=== PATIENT | female | born 1970 | race Caucasian/White ===

== ENCOUNTER → 2024-07-12 | Outpatient (CLI) | payer OTHER ==
[~2024-07-12] MED LIST: IOHEXOL 350 MG/ML 100ML INFUS..BTL IV ONE; IOHEXOL-350 50ML VIAL IV ONE
--- NOTE | 2024-07-12 12:37 | HMCIMG ---
CT ANGIO ABD AORTA W RUNOFF HISTORY: Peripheral vascular disease COMPARISON: None TECHNIQUE: CT angiography of the abdomen and pelvis was obtained using angiographic technique with maximum intensity projection reconstruction images. Patient was given 150 cc of Omnipaque through intravenous route. Oral contrast was not given. FINDINGS: No pleural effusion is seen bilaterally. There is no evidence of parenchymal disease or pulmonary nodule of the visualized lower lungs. Degenerative changes of the thoracolumbar spine are present. The heart is not enlarged. The liver, spleen, adrenal glands and pancreas are unremarkable. There is no evidence of hydronephrosis bilaterally. No evidence of renal stone is seen. Fecal material is seen in the colon. There are normal size retroperitoneal and mesenteric lymph nodes. No ascites is seen. Atherosclerotic changes are present. There is diffuse atherosclerotic disease. No evidence of abdominal aortic aneurysm is seen. The celiac, superior mesenteric and bilateral renal arteries are grossly patent. The visualized portion of the iliac and femoral arterial systems are also grossly patent. Popliteal arteries and posterior tibial arteries are grossly patent. The mid and distal portion of the anterior tibial and femoral arteries are poorly visualized. Distended limiting evaluation. This may be related to artifact versus slow flow. Possibility of occlusion or stenosis cannot be excluded. . Pelvic sidewalls are symmetric bilaterally. Bladder is well distended without wall thickening. IMPRESSION: 1. The mid and distal portion of the anterior tibial and femoral arteries are poorly visualized. Distended limiting evaluation. This may be related to artifact versus slow flow. Possibility of occlusion or stenosis cannot be excluded. Otherwise grossly unremarkable study CT was performed with one or more following dose reduction techniques: automated exposure control, adjustment of the mA and kv according to patient's size, or use of a iterative reconstruction technique.
== END | disposition home or self-care (01) ==
LOC: RAH 08:54
PROVIDERS: ATTEND Internal Medicine
DX: I73.9 Peripheral vascular disease, unspecified (principal); I70.8 Atherosclerosis of other arteries; M47.815 Spondylosis without myelopathy or radiculopathy, thoracolumbar region
CPT/HCPCS: 75635; Q9967 ×2

== ENCOUNTER → 2025-06-11 | Outpatient (CLI) | payer OTHER ==
[~2025-06-11] MED LIST changes: -IOHEXOL 350 MG/ML 100ML INFUS..BTL IV ONE; -IOHEXOL-350 50ML VIAL IV ONE; +IOHEXOL-350 75 ML VIAL IV ONE
--- NOTE | 2025-06-11 23:41 | HMCIMG ---
STUDY CTA Neck with and without Intravenous Contrast CLINICAL HISTORY Occlusion and stenosis of bilateral carotid arteries TECHNIQUE Axial CT angiography of the neck performed with and without intravenous contrast in the arterial phase. Coronal and sagittal reformatted images and 3D reconstructions were reviewed. NASCET criteria were used for stenosis assessment. CONTRAST Contrast injected without incident COMPARISON None provided FINDINGS COMMON CAROTID ARTERIES There is calcific atherosclerosis at the distal left common carotid artery, with luminal narrowing estimated at less than 10 percent by NASCET criteria. The left common carotid artery demonstrates a relatively reduced caliber compared with the contralateral side but remains patent without dissection or occlusion. Right common carotid artery shows no hemodynamically significant stenosis, dissection, or occlusion. INTERNAL CAROTID ARTERIES Cervical segments of both internal carotid arteries are patent without flow-limiting stenosis, dissection, or occlusion. Within the intracranial cavernous segment of the right internal carotid artery, calcific atherosclerotic plaque results in an estimated luminal narrowing of up to approximately 20 percent, without hemodynamically significant stenosis and with preserved distal flow. The intracranial cavernous segment of the left internal carotid artery demonstrates more advanced calcific atherosclerosis with an estimated 6070 percent luminal narrowing, consistent with high-moderate to severe stenosis by NASCET banding, with maintained distal opacification. EXTERNAL CAROTID ARTERIES External carotid arteries are patent without flow-limiting stenosis. VERTEBRAL ARTERIES Vertebral arteries are codominant and patent throughout the cervical course without significant stenosis, dissection, or occlusion. INTRACRANIAL CIRCULATION AND VARIANTS Distal intracranial opacification of both internal carotid arteries is preserved. The left A1 segment of the anterior cerebral artery is hypoplastic, with cross-filling via the anterior communicating artery supplying the anterior cerebral territory. No major intracranial large-vessel occlusion is identified on the visualized portions. SOFT TISSUES No neck mass, collection, or suspicious cervical lymphadenopathy. BONES No acute osseous abnormality of the cervical spine or skull base. IMPRESSION * Calcific atherosclerosis of the left cavernous internal carotid artery producing an estimated 6070 percent luminal narrowing with preserved distal flow, representing high-moderate to severe intracranial ICA stenosis by NASCET banding and a potential source of anterior circulation ischemic risk. * Mild calcific atherosclerosis of the right cavernous internal carotid artery with approximately 20 percent stenosis and calcified plaque at the distal left common carotid artery with less than 10 percent stenosis, neither hemodynamically significant. * Hypoplastic left A1 segment of the anterior cerebral artery, a [id number] variant with collateral filling of the anterior cerebral territory via the anterior communicating artery. * No cervical carotid or vertebral artery dissection, occlusion, or high-grade cervical carotid stenosis identified on this CTA of the neck. /[place]ley
== END | disposition home or self-care (01) ==
LOC: RAH 10:56
PROVIDERS: ATTEND Internal Medicine Cardiovascular Disease
DX: I65.23 Occlusion and stenosis of bilateral carotid arteries (principal); G93.89 Other specified disorders of brain
CPT/HCPCS: 70498; Q9967